=== PATIENT | female | born 1975 | race Caucasian/White ===

== ENCOUNTER 2024-02-12 08:00 | Outpatient (CLI) | payer OTHER ==
--- NOTE | 2024-02-12 20:55 | XRAY Report ---
PROCEDURE: Foot 3+V LT INDICATIONS: PAIN IN LEFT FOOT TECHNIQUE: 3 views of the foot were obtained. COMPARISON: None FINDINGS: Bones: No fractures or dislocations. No suspicious bony lesions. Soft tissues: Unremarkable. No radiopaque foreign body. IMPRESSION: Normal foot radiographs Reviewed by: Cl Rojas MD on 02/12/2024 7:54 PM AKDT Approved by: Cl Rojas MD on 02/12/2024 7:54 PM AKDT Station ID: [id number]
--- NOTE | 2024-02-13 12:30 | XRAY Report ---
PROCEDURE: Ankle 3+V LT INDICATIONS: LEFT ANKLE PAIN TECHNIQUE: 3 views of the ankle were acquired. COMPARISON: None FINDINGS: Bones: No fractures or dislocations. Ankle mortise is normally aligned. No suspicious bony lesions . Soft tissues: Unremarkable without significant soft tissue swelling. No radiopaque foreign body. IMPRESSION: Unremarkable ankle radiographs Reviewed by: Cl Rojas MD on 02/13/2024 11:28 AM SHIVA Approved by: Cl Rojas MD on 02/13/2024 11:28 AM AKSTEWART Station ID: [id number]
== END 2024-02-12 23:59 | disposition home or self-care (01) ==
LOC: DI.S 08:00
PROVIDERS: ATTEND Registered Nurse
DX: M25.572 Pain in left ankle and joints of left foot (principal); M79.672 Pain in left foot